=== PATIENT | male | born 1980 | race Caucasian/White ===

== ENCOUNTER 2017-03-05 19:48 | Emergency (ER) | payer MEDICAID, OTHER ==
[~2017-03-05] VITALS: Ht 172.7 cm; Wt 72.2 kg
[2017-03-05 19:53] VITALS: Ht 172.7 cm; Wt 72.2 kg
--- NOTE | 2017-03-05 23:09 | ERD ---
ER Documentation Chief Complaint Chief Complaint abscess left arm HPI 37-year-old male who presents emergency department for an abscess to his left arm for 4 days. Denies headache, dizziness, blurred vision, neck pain, chest pain, abdominal pain, nausea, vomiting, constipation, diarrhea, loss of bowel and bladder control, changes in bowel bladder habits, recent travel, recent antibiotic use in the last 3 months, recent exposure to any illness, fever, chills. Denies any drug use. ROS All systems reviewed and are negative except as per history of present illness. Medications Home Meds Active Scripts Hydrocodone/Acetaminophen ([place] 5-325 Tablet) 1 Each Tablet, 1 TAB PO Q6H Y for PAIN, #7 TAB Prov:PASILABAN,LEEAR F 03/05/17 Ibuprofen* (Motrin*) 800 Mg Tab, 800 MG PO Q8 Y for PAIN AND OR ELEVATED TEMP, # 30 TAB Prov:PASILABAN,LEEAR F 03/05/17 Sulfamethoxazole/Trimethoprim* (Bactrim Ds* Tablet) 1 Each Tablet, 1 TAB PO BID , #14 TAB Prov:PASILABAN,LEEAR F 03/05/17 Cephalexin* (Keflex*) 500 Mg Capsule, 500 MG PO QID for 5 Days, CAP Prov:PASILABAN,KLAR F 03/05/17 Allergies Allergies: Coded Allergies: No Known Allergy (Unverified , 03/05/17) PMhx/Soc Medical and Surgical Hx: pt denies Medical Hx, pt denies Surgical Hx Hx Alcohol Use: No Hx Substance Use: Yes (MARIJUANA DAILY, HEROIN) Hx Tobacco Use: Yes Smoking Status: Current every day smoker Physical Exam Vitals Vital Signs Date Time Temp Pulse Resp B/P Pulse Ox O2 Delivery O2 Flow Rate FiO2 03/06/17 01:33 97.7 79 20 128/85 99 Room Air 03/05/17 19:53 97.4 60 20 133/80 100 Physical Exam Const: Well-appearing. Not in acute respiratory distress. Head: Atraumatic Eyes: Normal Conjunctiva ENT: Normal External Ears, Nose and Mouth. Neck: Full range of motion..~ No meningismus. Resp: Clear to auscultation bilaterally Cardio: Regular rate and rhythm, no murmurs Abd: Soft, non tender, non distended. Normal bowel sounds Skin: No petechiae or rashes Back: No midline or flank tenderness Ext: No cyanosis, or edema. Left armpit swelling with redness and fluctuance measuring approximately 5 cm in diameter. Left radial pulse is present. No deformity to left shoulder. Neur: Awake and alert Psych: Normal Mood and Affect Results 24 hrs Current Medications Medications (Trade) Dose Ordered Sig/Narcisa Route PRN Reason Start Time Stop Time Status Last Admin Dose Admin Lidocaine (Xylocaine 1% (Mdv) 20 ml) 20 ml ONCE ONCE SC 03/05/17 23:30 03/05/17 23:31 DC 03/05/17 23:21 Ceftriaxone Sodium (Rocephin) 1 gm ONCE ONCE IM 03/05/17 23:30 03/05/17 23:31 DC 03/05/17 23:21 Acetaminophen/ Hydrocodone Bitart ([place] (10325)) 1 tab ONCE ONCE PO 03/06/17 01:30 03/06/17 01:31 DC 03/06/17 01:16 Procedures/MDM Procedure Incision and drainage: Betadine prep. Lidocaine 1% subcu. I&D done. Drained copious amount of purulent discharge. Packing done. Dressing applied. Treatment: Ceftriaxone IM. [place]. Dressing applied. Reevaluation: Denies pain. No neurovascular deficits. I have low suspicion for severe or serious bacterial infection, sepsis due to patient's history and my physical exam. Final diagnosis: Abscess. Prescription: Bactrim. Keflex. [place]. Motrin. Follow-up with PCP in the next 3-4 days. Come back here in the emergency department in 2 days for a wound check or possible removal or change of packing. Come back here in the emergency department for any new symptoms or any worsening symptoms. All questions and concerns are answered. Patient verbalized understanding and agreed with the plan of care. Hemodynamically stable on discharge. Departure Diagnosis: Primary Impression: Abscess Condition: Stable Additional Instructions: Follow-up with PCP in the next 3-4 days. Come back here in the emergency department in 2 days for a wound check or possible removal or change of packing. Come back here in the emergency department for any new symptoms or any worsening symptoms. All questions and concerns are answered. Patient verbalized understanding and agreed with the plan of care. CARLOS DELANEY Mar 05, 2017 23:09
[2017-03-05] MEDS ORDERED: SULF1TAB31 PO (23:10)
[2017-03-05] MEDS ORDERED: CEPH-443 PO (23:10)
[2017-03-05] MEDS ORDERED: IBUP800T25 PO (23:11)
[2017-03-05] MEDS ORDERED: HYDR-906 PO (23:11)
[2017-03-05] MEDS ORDERED: LIDOCAINE 1% (MDV) 20 ML INJ SC ONE (23:30)
[2017-03-05] MEDS ORDERED: CEFTRIAXONE 1 GM INJ IM ONE (23:30)
[2017-03-06] MEDS ORDERED: HYDROCODONE/APAP (10/325) TAB PO ONE (01:30)
[2017-03-06 01:33] VITALS: BP 128/85; PULSE 79; RESP 20; TEMP 97.7
== END 2017-03-06 01:34 | disposition home or self-care (01) ==
LOC: FTE 19:48
DX: L02.414 Cutaneous abscess of left upper limb (principal); F17.210 Nicotine dependence, cigarettes, uncomplicated
CPT/HCPCS: 10061; 96372; J0696; Z7502; Z7610